=== PATIENT | male | born 1995 | race Caucasian/White ===

== ENCOUNTER 2025-03-17 20:52 | Emergency (ER) | payer SELFPAY ==
[2025-03-17 20:53] VITALS: BP 112/82; PULSE 67; RESP 20; TEMP 36.8; O2SAT 97; BMI 27.3
--- NOTE | 2025-03-17 21:13 | EDS_ITS ---
HPI History of Present Illness Chief Complaint: Cold Sx Narrative Narrative: Patient is a 29-year-old male presenting to the emergency department for viral- like symptoms for the past 2 weeks. Patient has a past medical history of asthma. States that over the past 2 weeks he has felt slightly more short of breath than baseline. States it is mostly with exertion. He endorses a sore throat, dry cough and congestion. Denies fever, chills, chest pain, abdominal pain, nausea, vomiting, diarrhea. Denies lower extremity edema. Denies history of blood clots. He has been taking Mucinex at home for symptomatic control. PFSH PFS Medical History no medical history Allergy/AdvReac Type Severity Reaction Status Date / Time amoxicillin Allergy Hives Verified 03/17/25 20:53 Family History no significant family his Surgical History no surgical history Social History Smoking Status: Never smoker ROS ROS ED ROS Narrative see HPI EXAM Physical Exam Narrative Exam Narrative: Vital signs: Reviewed General: Alert and oriented. No acute distress HEENT: Head is normocephalic and atraumatic, sinuses nontender, pupils equal round and reactive. Nares are patent. Oropharynx and throat exams normal. Neck: Supple without lymphadenopathy nontender Cardiovascular: Regular rate and rhythm, no murmurs. No rubs or gallops. Normal S1 and S2 Respiratory: Mild wheezing throughout all lung leal. No rales or rhonchi Abdominal: Soft and nontender. Normal bowel sounds. No guarding or rebound. Nonsurgical abdomen Extremities: No tenderness. No bruising. Normal range of motion. Normal sensation. Skin: No rash or redness. Neurological: Cranial nerves II through XII are grossly intact. Normal strength and sensation. Normal cerebellar function The rest of the physical exam is unremarkable Const Vital Signs: 03/17/25 20:53 03/17/25 21:27 03/17/25 21:27 Temperature 98.2 F Temperature Source Oral Pulse Rate 67 74 Respiratory Rate 20 H 18 Respiratory Pattern Normal Normal Blood Pressure 112/82 H Blood Pressure Mean 92 Pulse Ox 97 03/17/25 22:39 Temperature 98.3 F Temperature Source Pulse Rate 74 Respiratory Rate 18 Respiratory Pattern Blood Pressure 110/78 Blood Pressure Mean 88 Pulse Ox 99 MDM MDM MDM Narrative Medical decision making narrative: Patient is a 29-year-old male presenting to the emergency department for viral- like symptoms. Patient was seen and examined. Vitals are stable. Patient resting bed comfortably no acute distress. Differential includes percent limited to: Pneumonia, viral illness, asthma exacerbation Patient given a DuoNeb breathing treatment given the mild wheezing on exam. Chest x-ray and viral swab ordered. Chest x-ray shows no acute radiographic abnormalities. Viral swab is negative. Patient reevaluated after the breathing treatment, wheezing is improved. Patient likely has a URI. Given supportive care instructions for home. Patient discharged from the Emergency Department. I do not feel that the patient's evaluation reveals any acute reason for admission at this time. I instructed them to either follow-up with their primary care physician or promptly return to the Emergency Department for reevaluation should symptoms worsen or new symptoms develop. I explained what symptoms would indicate the need to return to the emergency department. Shared decision making was used. The patient voiced understanding of the treatment plan and is agreeable with it. Clinical impression: 1. URI 2. Wheezing History & Record Review Discussion w/independent historian: Patient and Family Radiography Diagnostic Testing: Clinical Impression(s) from Imaging Studies Chest X-Ray 03/17/25 21:20 IMPRESSION: No acute cardiopulmonary abnormalities. Reading Location: [facility] Discharge Plan Triage Chief Complaint: Cold Sx ED Provider: Raine Goodrich Dx/Rx/DC Orders Clinical Impression: Acute upper respiratory infection Instructions: ED URI, Viral W/ Wheezing (Adult) Primary Care Provider: Care Physician,No Primary Referrals: Your primary care doctor [Other] - 2 Days Care Physician,No Primary [Primary Care Provider] - Activity Restrictions/Additional Instructions: Your evaluation in the Emergency Department did not reveal any acute reason for admission. However, I want to emphasize that you may be early in the course of a disease process or illness even if it is not present. For this reason you should follow-up within 24 hours for reevaluation with either your primary care physician or if necessary back here in the Emergency Department. You should return to the Emergency Department immediately if your symptoms worsen or new symptoms develop. Print Language: [place] Islander Disposition Disposition: Home, Self Care Discharge Date/Time: 03/17/25 22:39
--- NOTE | 2025-03-17 21:20 | RAD_ITS ---
PROCEDURE: CHEST PA AND LATERAL 03/17/2025 REASON FOR EXAM: SOB TECHNIQUE: CHEST PA AND LATERAL FINDINGS: The heart is normal in size. The lungs are clear. No acute osseous abnormalities. RAD/Chest PA and Lateral IMPRESSION: No acute cardiopulmonary abnormalities. Reading Location: [id number]
[2025-03-17 21:27] VITALS: PULSE 74; RESP 18
[2025-03-17 22:39] VITALS: BP 110/78; PULSE 74; RESP 18; TEMP 36.8; O2SAT 99
== END 2025-03-17 22:39 | disposition home or self-care (01) ==
PROVIDERS: Emergency Provider Student in an Organized Health Care Education/Training Program; Referring Provider Student in an Organized Health Care Education/Training Program; Visit Provider Student in an Organized Health Care Education/Training Program
DX: J06.9 Acute upper respiratory infection, unspecified (principal)
CPT/HCPCS: 71046; 87631; 94640; 99282